=== PATIENT | female | born 1950 | race Caucasian/White ===

== ENCOUNTER → 2016-12-23 | Outpatient (CLI) | payer MEDICARE ==
--- NOTE | 2016-12-24 13:12 | XR ---
Left foot and ankle HISTORY: Trauma and pain 3 views of the left ankle and 3 views of the left foot are submitted No comparisons There is a proximal fifth metatarsal fracture with minimal displacement. Degenerative change present at the first metatarsophalangeal joint. There is a plantar calcaneal spur. Soft tissue swelling is no ellis. Frontal ankle view shows some questionable flake-like calcifications in the lateral aspect of th e foot which could represent small chip fractures. IMPRESSION: Proximal fifth metatarsal fracture. Soft tissue swelling. Additional findings above.
== END | disposition home or self-care (01) ==
LOC: RADXRYALE 11:21
PROVIDERS: ATTEND Internal Medicine
DX: S92.352A Displaced fracture of fifth metatarsal bone, left foot, initial encounter for closed fracture (principal)